=== PATIENT | male | born 1975 | race Caucasian/White ===

== ENCOUNTER 2017-05-08 17:47 | Emergency (ER) | payer MEDICAID ==
[~2017-05-08] VITALS: Ht 175.3 cm; Wt 127.1 kg
[~2017-05-08 17:47] MED LIST: ALBU8.5H5 INH; AMPH20TA2 PO; DIAZ5TAB PO; METH20TA PO; QUET100T4 PO
[2017-05-08] MEDS ORDERED: SODIUM CHLORIDE 0.9% 1,000ML IVBOLUS ONE (18:00)
[2017-05-08] MEDS ORDERED: SODIUM CHLORIDE FLUSH 10ML SYR IVF ONE (18:00)
[2017-05-08] MEDS ORDERED: ASPIRIN 81 MG TABLET CHEW PO ONE (18:00)
[2017-05-08] MEDS ORDERED: ASPIRIN 81 MG TABLET CHEW ONE (18:05)
[2017-05-08] MEDS ORDERED: ALBUTEROL SULFATE 2.5 MG/3 ML ONE (18:20)
[2017-05-08] MEDS ORDERED: ALBUTEROL SULFATE 2.5 MG/3 ML NPPB ONE (18:30)
[2017-05-08 18:31] LABS: BLOOD UREA NITROGEN 9 mg/dL (7-18)
[2017-05-08 18:37] LABS: IS PT STATUS REG ER OR PRE ER? YES
[2017-05-08 20:42] VITALS: BP 121/72
== END 2017-05-08 20:44 | disposition home or self-care (01) ==
LOC: ED 20:43
DX: R07.89 Other chest pain (principal); J45.31 Mild persistent asthma with (acute) exacerbation
CPT/HCPCS: 36415; 71020; 80048; 82040; 84484; 85025; 93005; 94640; 96360; 99285; J7030; J7512; J7613

== ENCOUNTER 2018-01-10 09:22 | Observation (INO) | payer MEDICAID ==
[~2018-01-10] VITALS: Ht 172.7 cm; Wt 117.6 kg
[2018-01-10 10:04] LABS: BASOPHILS # (AUTO) 0.03 x10^3/uL (0-0.1); BASOPHILS % (AUTO) 0 % (0-1); EOSINOPHILS # (AUTO) 0.16 x10^3/uL (0-0.4); EOSINOPHILS % (AUTO) 1 % (1-7); LYMPHOCYTES # (AUTO) 1.32 x10^3/uL (1-3.4); LYMPHOCYTES % (AUTO) 11 % (22-44); MD NO; MEAN CORPUSCULAR HGB CONC 34.6 g/dL (33.2-36.2); MEAN CORPUSCULAR VOLUME 101.2 fL (81-97); MEAN PLATELET VOLUME 8.9 fL (7.4-10.4); MONOCYTES # (AUTO) 0.46 x10^3/uL (0.2-0.8); MONOCYTES % (AUTO) 4 % (2-9); NEUTROPHILS # (AUTO) 10.52 x10^3/uL (1.8-6.8); NEUTROPHILS % (AUTO) 84 % (42-75); PLATELET COUNT 197 x10^3/uL (130-400); RED CELL DISTRIBUTION WIDTH 12.5 % (9.4-14.8)
[2018-01-10 10:20] LABS: ALANINE AMINOTRANSFERASE 29 U/L (12-78); ALBUMIN 3.6 g/dL (3.4-5.0); ANION GAP 7 mmol/L (5-15); CALCIUM 8.7 mg/dL (8.5-10.1); CHLORIDE 104 mmol/L (98-107); CREATININE 0.82 mg/dL (0.7-1.3)
[2018-01-10 10:21] LABS: ALKALINE PHOSPHATASE 121 U/L (45-117); TOTAL PROTEIN 7.8 g/dL (6.4-8.2)
[2018-01-10 10:22] LABS: SALICYLATE LEVEL < 1.7 mg/dL (2.8-20.0)
[2018-01-10 10:23] LABS: ACETAMINOPHEN < 2 mcg/mL (10-30)
[2018-01-10 10:26] LABS: AMPHETAMINE SCREEN, URINE Negative (Negative); BARBITURATE SCREEN, URINE Negative (Negative); BENZODIAZEPINE SCREEN, URINE Positive (Negative); CANNABINOID SCREEN, URINE Negative (Negative); COCAINE SCREEN, URINE Negative (Negative); METHADONE SCREEN, URINE Negative (Negative); OPIATE SCREEN, URINE Negative (Negative)
[2018-01-10] MEDS ORDERED: QUET200T4 PO (11:14)
[2018-01-10] MEDS ORDERED: DIAZ5TAB PO (11:14)
[2018-01-10] MEDS ORDERED: IBUPROFEN 200 MG TABLET PO ONE (11:30)
[2018-01-10] MEDS ORDERED: IBUPROFEN 200 MG TABLET ONE (11:53)
[2018-01-10] MEDS ORDERED: POLYETHYLENE GLYCOL 17 GM PACKET PO PRN (12:00)
[2018-01-10] MEDS ORDERED: ONDANSETRON ODT 4 MG PO PRN ×2 (12:00→16:00)
[2018-01-10] MEDS ORDERED: ALBUTEROL SULFATE 2.5 MG/3 ML NPPB PRN (12:30)
[2018-01-10] MEDS ORDERED: ALBUTEROL SULFATE 2.5 MG/3 ML NPPB SCH ×3 (12:30→21:00)
[2018-01-10 12:34] LABS: FREE T4 (FREE THYROXINE) 0.87 ng/dL (0.76-1.46); THYROID STIMULATING HORMONE 1.89 mIU/L (0.358-3.740)
[2018-01-10] MEDS ORDERED: ALBUTEROL SULFATE 2.5 MG/3 ML ONE (12:52)
[2018-01-10] MEDS ORDERED: ACETAMINOPHEN 325 MG TABLET PO PRN (16:00)
[2018-01-10] MEDS ORDERED: LORazepam 1MG TABLET PO PRN (16:00)
[2018-01-10 18:58] VITALS: BP 123/83
[2018-01-10] MEDS: QUETIAPINE 200 MG TABLET PO SCH (20:04)
[2018-01-10] MEDS: HYDROcodone/APAP 5/325 TABLET PO PRN (20:11)
[2018-01-11 05:56] LABS: BASOPHILS # (AUTO) 0.03 x10^3/uL (0-0.1); BASOPHILS % (AUTO) 0 % (0-1); EOSINOPHILS # (AUTO) 0.18 x10^3/uL (0-0.4); EOSINOPHILS % (AUTO) 2 % (1-7); LYMPHOCYTES # (AUTO) 1.53 x10^3/uL (1-3.4); LYMPHOCYTES % (AUTO) 18 % (22-44); MD NO; MEAN CORPUSCULAR HEMOGLOBIN 34.9 pg (27.5-34.5); MEAN CORPUSCULAR HGB CONC 33.9 g/dL (33.2-36.2); MEAN CORPUSCULAR VOLUME 102.9 fL (81-97); MONOCYTES # (AUTO) 1.07 x10^3/uL (0.2-0.8); MONOCYTES % (AUTO) 13 % (2-9); NEUTROPHILS # (AUTO) 5.52 x10^3/uL (1.8-6.8); NEUTROPHILS % (AUTO) 66 % (42-75); PLATELET COUNT 162 x10^3/uL (130-400); RED BLOOD COUNT 4.21 x10^6/uL (4.38-5.82); RED CELL DISTRIBUTION WIDTH 13.1 % (9.4-14.8)
[2018-01-11 06:06] LABS: ANION GAP 4 mmol/L (5-15); CALCIUM 8.1 mg/dL (8.5-10.1); CHLORIDE 104 mmol/L (98-107)
[2018-01-11 06:11] LABS: ALANINE AMINOTRANSFERASE 25 U/L (12-78); ALKALINE PHOSPHATASE 102 U/L (45-117); BILIRUBIN,TOTAL 0.7 mg/dL (0.2-1.0); CREATININE 0.81 mg/dL (0.7-1.3); TOTAL PROTEIN 6.6 g/dL (6.4-8.2)
[2018-01-11 07:53] VITALS: BP 137/85
[2018-01-11] MEDS: DIAZEPAM 5 MG TABLET PO SCH (09:03)
[2018-01-11] MEDS: SENNA/DOCUSATE TABLET PO SCH (09:03)
[2018-01-11] MEDS: HYDROcodone/APAP 5/325 TABLET PO PRN ×2 (09:15→20:56)
[2018-01-11 17:04] LABS: FOLATE LEVEL > 20.0 ng/mL (3.1-17.5)
[2018-01-11 19:38] VITALS: BP 127/72
[2018-01-11] MEDS: ALBUTEROL SULFATE 2.5 MG/3 ML NPPB SCH (19:55)
[2018-01-11] MEDS: QUETIAPINE 200 MG TABLET PO SCH (20:56)
[2018-01-12 07:30] VITALS: BP 125/75
[2018-01-12] MEDS: HYDROcodone/APAP 5/325 TABLET PO PRN ×3 (08:31→20:44)
[2018-01-12] MEDS: SENNA/DOCUSATE TABLET PO SCH (08:31)
[2018-01-12] MEDS: DIAZEPAM 5 MG TABLET PO SCH (08:31)
[2018-01-12] MEDS: FLUTICASONE/VILANTEROL 200-25MCG/INH INH SCH (08:44)
[2018-01-12] MEDS: ALBUTEROL SULFATE 2.5 MG/3 ML NPPB SCH ×2 (09:00→21:50)
[2018-01-12] MEDS ORDERED: CYANOCOBALAMIN 1,000 MCG/ML, 1ML IM SCH (14:30)
[2018-01-12 20:00] VITALS: BP 109/70
[2018-01-12] MEDS: QUETIAPINE 200 MG TABLET PO SCH (20:36)
[2018-01-13 07:30] VITALS: BP 121/84
[2018-01-13] MEDS: DIAZEPAM 5 MG TABLET PO SCH (09:16)
[2018-01-13] MEDS: SENNA/DOCUSATE TABLET PO SCH (09:16)
[2018-01-13] MEDS: FLUTICASONE/VILANTEROL 200-25MCG/INH INH SCH (09:16)
[2018-01-13] MEDS: HYDROcodone/APAP 5/325 TABLET PO PRN ×2 (09:25→21:58)
[2018-01-13] MEDS: ALBUTEROL SULFATE 2.5 MG/3 ML NPPB SCH ×2 (11:05→20:23)
[2018-01-13 20:09] VITALS: BP 117/63
[2018-01-13] MEDS: QUETIAPINE 200 MG TABLET PO SCH (20:31)
[2018-01-14 05:17] LABS: BASOPHILS # (AUTO) 0.03 x10^3/uL (0-0.1); BASOPHILS % (AUTO) 0 % (0-1); EOSINOPHILS # (AUTO) 0.29 x10^3/uL (0-0.4); EOSINOPHILS % (AUTO) 4 % (1-7); LYMPHOCYTES # (AUTO) 2.73 x10^3/uL (1-3.4); LYMPHOCYTES % (AUTO) 40 % (22-44); MD NO; MEAN CORPUSCULAR HEMOGLOBIN 34.9 pg (27.5-34.5); MEAN CORPUSCULAR VOLUME 102.4 fL (81-97); MEAN PLATELET VOLUME 8.5 fL (7.4-10.4); MONOCYTES # (AUTO) 0.75 x10^3/uL (0.2-0.8); MONOCYTES % (AUTO) 11 % (2-9); NEUTROPHILS # (AUTO) 3.02 x10^3/uL (1.8-6.8); NEUTROPHILS % (AUTO) 44 % (42-75); PLATELET COUNT 187 x10^3/uL (130-400); RED BLOOD COUNT 4.06 x10^6/uL (4.38-5.82); RED CELL DISTRIBUTION WIDTH 12.4 % (9.4-14.8)
[2018-01-14 05:29] LABS: ALBUMIN 2.8 g/dL (3.4-5.0); ANION GAP 3 mmol/L (5-15); CALCIUM 7.8 mg/dL (8.5-10.1); CHLORIDE 105 mmol/L (98-107); CREATININE 0.65 mg/dL (0.7-1.3)
[2018-01-14 08:26] VITALS: BP 114/66
[2018-01-14] MEDS: ALBUTEROL SULFATE 2.5 MG/3 ML NPPB SCH ×2 (08:29→22:00)
[2018-01-14] MEDS: FLUTICASONE/VILANTEROL 200-25MCG/INH INH SCH (08:57)
[2018-01-14] MEDS: DIAZEPAM 5 MG TABLET PO SCH (08:57)
[2018-01-14] MEDS: SENNA/DOCUSATE TABLET PO SCH (08:57)
[2018-01-14 19:40] VITALS: BP 100/61
[2018-01-14] MEDS: QUETIAPINE 200 MG TABLET PO SCH (20:14)
[2018-01-14] MEDS: HYDROcodone/APAP 5/325 TABLET PO PRN (21:27)
[2018-01-15 07:39] VITALS: BP 104/62
[2018-01-15] MEDS: DIAZEPAM 5 MG TABLET PO SCH (08:09)
[2018-01-15] MEDS: SENNA/DOCUSATE TABLET PO SCH (08:10)
[2018-01-15] MEDS: ALBUTEROL SULFATE 2.5 MG/3 ML NPPB SCH ×2 (09:15→21:00)
[2018-01-15] MEDS: CYANOCOBALAMIN 1,000 MCG TABLET PO SCH (09:40)
[2018-01-15] MEDS: FLUTICASONE/VILANTEROL 200-25MCG/INH INH SCH (09:40)
[2018-01-15 19:52] VITALS: BP 127/84
[2018-01-15] MEDS: QUETIAPINE 200 MG TABLET PO SCH (20:26)
[2018-01-16] MEDS: DIAZEPAM 5 MG TABLET PO SCH (08:07)
[2018-01-16] MEDS: SENNA/DOCUSATE TABLET PO SCH (08:07)
[2018-01-16] MEDS: CYANOCOBALAMIN 1,000 MCG TABLET PO SCH (08:08)
[2018-01-16] MEDS: FLUTICASONE/VILANTEROL 200-25MCG/INH INH SCH (08:09)
[2018-01-16] MEDS: HYDROcodone/APAP 5/325 TABLET PO PRN ×2 (08:35→21:24)
[2018-01-16] MEDS: ALBUTEROL SULFATE 2.5 MG/3 ML NPPB SCH ×2 (08:48→21:00)
[2018-01-16 08:54] VITALS: BP 129/82
[2018-01-16 19:42] VITALS: BP 95/58
[2018-01-16] MEDS: QUETIAPINE 200 MG TABLET PO SCH (21:24)
[2018-01-17] MEDS: DIAZEPAM 5 MG TABLET PO SCH (08:34)
[2018-01-17] MEDS: CYANOCOBALAMIN 1,000 MCG TABLET PO SCH (08:35)
[2018-01-17] MEDS: FLUTICASONE/VILANTEROL 200-25MCG/INH INH SCH (08:35)
[2018-01-17] MEDS: SENNA/DOCUSATE TABLET PO SCH (08:37)
[2018-01-17] MEDS: HYDROcodone/APAP 5/325 TABLET PO PRN ×2 (08:41→21:28)
[2018-01-17] MEDS: ALBUTEROL SULFATE 2.5 MG/3 ML NPPB SCH ×2 (09:00→21:00)
[2018-01-17 09:21] VITALS: BP 127/83
[2018-01-17 19:08] VITALS: BP 121/74
[2018-01-17] MEDS: QUETIAPINE 200 MG TABLET PO SCH (21:28)
[2018-01-18] MEDS ORDERED: ACETAMINOPHEN 325 MG SUPP PR PRN (07:00)
[2018-01-18] MEDS ORDERED: ACETAMINOPHEN 650 MG SUPP PR PRN (07:30)
[2018-01-18 07:40] VITALS: BP 108/66
[2018-01-18] MEDS: DIAZEPAM 5 MG TABLET PO SCH (08:28)
[2018-01-18] MEDS: CYANOCOBALAMIN 1,000 MCG TABLET PO SCH (08:28)
[2018-01-18] MEDS: FLUTICASONE/VILANTEROL 200-25MCG/INH INH SCH (08:29)
[2018-01-18] MEDS: SENNA/DOCUSATE TABLET PO SCH (08:43)
[2018-01-18] MEDS: ALBUTEROL SULFATE 2.5 MG/3 ML NPPB SCH ×2 (09:00→20:50)
[2018-01-18] MEDS: ACETAMINOPHEN 325 MG TABLET PO PRN ×2 (09:15→20:36)
[2018-01-18 19:40] VITALS: BP 125/71
[2018-01-18] MEDS: QUETIAPINE 200 MG TABLET PO SCH (20:27)
[2018-01-19 08:30] VITALS: BP 101/64
[2018-01-19] MEDS: FLUTICASONE/VILANTEROL 200-25MCG/INH INH SCH (09:00)
[2018-01-19] MEDS: ALBUTEROL SULFATE 2.5 MG/3 ML NPPB SCH ×2 (09:00→21:00)
[2018-01-19] MEDS: DIAZEPAM 5 MG TABLET PO SCH (10:11)
[2018-01-19] MEDS: SENNA/DOCUSATE TABLET PO SCH (10:11)
[2018-01-19] MEDS: CYANOCOBALAMIN 1,000 MCG TABLET PO SCH (10:12)
[2018-01-19] MEDS: QUETIAPINE 200 MG TABLET PO SCH (20:09)
[2018-01-19 20:10] VITALS: BP 113/71
[2018-01-19] MEDS: ACETAMINOPHEN 325 MG TABLET PO PRN (20:14)
[2018-01-20 08:07] VITALS: BP 129/72
[2018-01-20] MEDS ORDERED: THIAMINE 100MG TABLET ONE (08:55)
[2018-01-20] MEDS: SENNA/DOCUSATE TABLET PO SCH (08:57)
[2018-01-20] MEDS: ALBUTEROL SULFATE 2.5 MG/3 ML NPPB SCH ×2 (08:58→20:20)
[2018-01-20] MEDS: CYANOCOBALAMIN 1,000 MCG TABLET PO SCH (08:58)
[2018-01-20] MEDS: DIAZEPAM 5 MG TABLET PO SCH (08:58)
[2018-01-20] MEDS: FLUTICASONE/VILANTEROL 200-25MCG/INH INH SCH (09:00)
[2018-01-20] MEDS: ACETAMINOPHEN 325 MG TABLET PO PRN ×2 (09:06→21:15)
[2018-01-20 20:49] VITALS: BP 122/72
[2018-01-20] MEDS: QUETIAPINE 200 MG TABLET PO SCH (21:14)
[2018-01-21 08:01] VITALS: BP 114/72
[2018-01-21] MEDS: SENNA/DOCUSATE TABLET PO SCH (08:27)
[2018-01-21] MEDS: FLUTICASONE/VILANTEROL 200-25MCG/INH INH SCH (08:27)
[2018-01-21] MEDS: CYANOCOBALAMIN 1,000 MCG TABLET PO SCH (08:27)
[2018-01-21] MEDS: DIAZEPAM 5 MG TABLET PO SCH (08:27)
[2018-01-21] MEDS: ALBUTEROL SULFATE 2.5 MG/3 ML NPPB SCH ×2 (09:00→21:00)
[2018-01-21 20:22] VITALS: BP 132/78
[2018-01-21] MEDS: ACETAMINOPHEN 325 MG TABLET PO PRN (20:27)
[2018-01-21] MEDS: QUETIAPINE 200 MG TABLET PO SCH (20:27)
[2018-01-22 07:45] VITALS: BP 105/62
[2018-01-22] MEDS: DIAZEPAM 5 MG TABLET PO SCH (08:12)
[2018-01-22] MEDS: CYANOCOBALAMIN 1,000 MCG TABLET PO SCH (08:13)
[2018-01-22] MEDS: ACETAMINOPHEN 325 MG TABLET PO PRN ×2 (08:17→20:16)
[2018-01-22] MEDS: SENNA/DOCUSATE TABLET PO SCH (09:00)
[2018-01-22] MEDS: FLUTICASONE/VILANTEROL 200-25MCG/INH INH SCH (09:59)
[2018-01-22] MEDS ORDERED: ALBUTEROL SULFATE 2.5 MG/3 ML NPPB PRN (11:00)
[2018-01-22 19:36] VITALS: BP 120/76
[2018-01-22] MEDS: QUETIAPINE 200 MG TABLET PO SCH (20:16)
[2018-01-23] MEDS: FLUTICASONE/VILANTEROL 200-25MCG/INH INH SCH (08:12)
[2018-01-23] MEDS: DIAZEPAM 5 MG TABLET PO SCH (08:12)
[2018-01-23] MEDS: CYANOCOBALAMIN 1,000 MCG TABLET PO SCH (08:12)
[2018-01-23] MEDS: SENNA/DOCUSATE TABLET PO SCH (08:12)
[2018-01-23 08:13] VITALS: BP 115/72
[2018-01-23 19:37] VITALS: BP 131/81
[2018-01-23] MEDS: QUETIAPINE 200 MG TABLET PO SCH (19:57)
[2018-01-23] MEDS: ACETAMINOPHEN 325 MG TABLET PO PRN (20:03)
[2018-01-24 08:04] VITALS: BP 97/62
[2018-01-24] MEDS: FLUTICASONE/VILANTEROL 200-25MCG/INH INH SCH (09:08)
[2018-01-24] MEDS: DIAZEPAM 5 MG TABLET PO SCH (09:08)
[2018-01-24] MEDS: SENNA/DOCUSATE TABLET PO SCH (09:08)
[2018-01-24] MEDS: CYANOCOBALAMIN 1,000 MCG TABLET PO SCH (09:08)
[2018-01-24] MEDS: ACETAMINOPHEN 325 MG TABLET PO PRN (09:08)
[2018-01-24] MEDS ORDERED: CYAN10005 PO (16:19)
== END 2018-01-24 17:09 | disposition home or self-care (01) ==
LOC: ED 10:26 → EDIP 10:40 → 2N 17:53
PROVIDERS: ADMIT Internal Medicine; ATTEND Internal Medicine
DX: R45.851 Suicidal ideations (principal); F32.9 Major depressive disorder, single episode, unspecified; D75.89 Other specified diseases of blood and blood-forming organs; F41.1 Generalized anxiety disorder; F25.9 Schizoaffective disorder, unspecified; J45.909 Unspecified asthma, uncomplicated; F10.10 Alcohol abuse, uncomplicated; E43 Unspecified severe protein-calorie malnutrition; E53.8 Deficiency of other specified B group vitamins; G89.29 Other chronic pain; F17.210 Nicotine dependence, cigarettes, uncomplicated; Z59.0 Homelessness
CPT/HCPCS: 36415; 71045; 80048; 80053; 80307; 80329; 82040; 82607; 82746; 84439; 84443; 85025; 93005; 94640; 99285; G0378; J3420; J7613; G0480

== ENCOUNTER 2018-03-15 13:56 | Emergency (ER) | payer MEDICAID ==
[~2018-03-15] VITALS: Ht 175.3 cm; Wt 118.1 kg
[~2018-03-15 13:56] MED LIST changes: +CYAN10005 PO; +QUET200T4 PO
[2018-03-15 16:35] LABS: BASOPHILS # (AUTO) 0.06 x10^3/uL (0-0.1); BASOPHILS % (AUTO) 1 % (0-1); EOSINOPHILS # (AUTO) 0.34 x10^3/uL (0-0.4); EOSINOPHILS % (AUTO) 6 % (1-7); LYMPHOCYTES # (AUTO) 2.69 x10^3/uL (1-3.4); LYMPHOCYTES % (AUTO) 44 % (22-44); MD NO; MEAN CORPUSCULAR HEMOGLOBIN 34.2 pg (27.5-34.5); MEAN CORPUSCULAR HGB CONC 33.8 g/dL (33.2-36.2); MEAN PLATELET VOLUME 8.8 fL (7.4-10.4); MONOCYTES # (AUTO) 0.56 x10^3/uL (0.2-0.8); MONOCYTES % (AUTO) 9 % (2-9); NEUTROPHILS # (AUTO) 2.49 x10^3/uL (1.8-6.8); NEUTROPHILS % (AUTO) 41 % (42-75); PLATELET COUNT 167 x10^3/uL (130-400); RED BLOOD COUNT 4.14 x10^6/uL (4.38-5.82); RED CELL DISTRIBUTION WIDTH 12.9 % (9.4-14.8)
[2018-03-15 16:44] LABS: ALBUMIN 3.1 g/dL (3.4-5.0); ANION GAP 5 mmol/L (5-15); CALCIUM 8.1 mg/dL (8.5-10.1); CHLORIDE 111 mmol/L (98-107)
[2018-03-15 17:00] LABS: AMPHETAMINE SCREEN, URINE Negative (Negative); BARBITURATE SCREEN, URINE Negative (Negative); BENZODIAZEPINE SCREEN, URINE Negative (Negative); CANNABINOID SCREEN, URINE Negative (Negative); COCAINE SCREEN, URINE Negative (Negative); METHADONE SCREEN, URINE Negative (Negative); OPIATE SCREEN, URINE Negative (Negative)
[2018-03-15 17:01] LABS: ACETAMINOPHEN < 2 mcg/mL (10-30); SALICYLATE LEVEL < 1.7 mg/dL (2.8-20.0)
[2018-03-15] MEDS ORDERED: QUETIAPINE 100MG TABLET PO ONE (18:30)
[2018-03-15] MEDS ORDERED: QUETIAPINE 100MG TABLET ONE (19:19)
[2018-03-15 20:22] VITALS: BP 144/81
== END 2018-03-15 20:25 | disposition home or self-care (01) ==
LOC: ED 14:55
DX: R45.851 Suicidal ideations (principal); F25.9 Schizoaffective disorder, unspecified; J45.909 Unspecified asthma, uncomplicated; Z79.899 Other long term (current) drug therapy
CPT/HCPCS: 36415; 80048; 80307; 80329; 82040; 85025; 99284; G0480

== ENCOUNTER 2019-06-09 14:01 | Inpatient (IN) | payer MEDICAID ==
[~2019-06-09] VITALS: Ht 175.3 cm; Wt 114.6 kg
[2019-06-23 07:30] VITALS: BP 105/60
== END 2019-06-23 10:30 | disposition home or self-care (01) | DRG 750 ==
LOC: 3E 16:23
PROVIDERS: ADMIT Psychiatry & Neurology Psychosomatic Medicine; ATTEND Psychiatry & Neurology Psychosomatic Medicine
DX: F25.0 Schizoaffective disorder, bipolar type (principal); R45.851 Suicidal ideations; D75.89 Other specified diseases of blood and blood-forming organs; F41.9 Anxiety disorder, unspecified; J45.909 Unspecified asthma, uncomplicated; F17.200 Nicotine dependence, unspecified, uncomplicated; F90.9 Attention-deficit hyperactivity disorder, unspecified type; Z88.1 Allergy status to other antibiotic agents; Z88.0 Allergy status to penicillin; Z88.8 Allergy status to other drugs, medicaments and biological substances
CPT/HCPCS: 36415; 80053; 80061; 81003; 82140; 82607; 82962; 84439; 84443; 85025; 86592; 94640; J7613

== ENCOUNTER 2019-10-29 19:26 | Emergency (ER) | payer MEDICAID ==
[~2019-10-29] VITALS: Ht 180.3 cm; Wt 129.0 kg
[~2019-10-29 19:26] MED LIST changes: +CYAN-27 PO; -CYAN10005 PO; +NICO-486 TD; +QUET100T PO
--- NOTE | 2019-10-29 19:32 | NUR ---
REPORT OF PT FROM [facility] UPON ARRIVAL TO [facility] ED. PT REPORTS AUDITORY HALLUCINATIONS WITH SUICIDAL IDEATION. LIGHTING TECHNICIAN GLENYS NOTIFIED OF NEED FOR SECURE ROOM AND SITTER. PER LIGHTING TECHNICIAN, NO SECURE ROOM AVAILABLE FOR PT AT THIS TIME. PER TAVO VERONICA REQUESTED. PT EDUCATED ON ER PROCESS AND POC AND VERBALIZES UNDERSTANDING. PT LAYING IN GURNEY AT THIS TIME. PT CALM AND COOPERATIVE. AWAITING ERP FOR ASSESSMENT OF PT.
--- NOTE | 2019-10-29 19:58 | NUR ---
SITTER OUTSIDE OF PT ROOM FOR DIRECT OBSERVATION OF PT. PT ASKED TO REMOVE ALL PERSONAL BELONGINGS AND ARTICLES AND PLACE IN PT BELONGING BAGS. PT BELONGINGS PLACED IN 2 OF 2 BAGS AND LABELED FOR STORAGE IN LOCKED BIN.
--- NOTE | 2019-10-29 21:16 | NUR ---
PT CALM AND COOPERATIVE IN [facility] AT THIS TIME. PT HAS SITTER OUTSIDE OF ROOM FOR DIRECT OBSERVATION OF PT AT THIS TIME.
[2019-10-29 21:33] LABS: BASOPHILS # (AUTO) 0.04 x10^3/uL (0-0.1); BASOPHILS % (AUTO) 0 % (0-1); EOSINOPHILS # (AUTO) 0.71 x10^3/uL (0-0.4); EOSINOPHILS % (AUTO) 7 % (1-7); LYMPHOCYTES # (AUTO) 3.89 x10^3/uL (1-3.4); LYMPHOCYTES % (AUTO) 39 % (22-44); MD NO; MEAN CORPUSCULAR HGB CONC 33.2 g/dL (33.2-36.2); MEAN CORPUSCULAR VOLUME 102.4 fL (81-97); MEAN PLATELET VOLUME 8.1 fL (7.4-10.4); MONOCYTES # (AUTO) 0.95 x10^3/uL (0.2-0.8); MONOCYTES % (AUTO) 10 % (2-9); NEUTROPHILS # (AUTO) 4.34 x10^3/uL (1.8-6.8); NEUTROPHILS % (AUTO) 44 % (42-75); PLATELET COUNT 184 x10^3/uL (130-400); RED BLOOD COUNT 3.99 x10^6/uL (4.38-5.82); RED CELL DISTRIBUTION WIDTH 13.2 % (9.4-14.8)
[2019-10-29 21:43] LABS: ALANINE AMINOTRANSFERASE 41 U/L (12-78); ALBUMIN 3.3 g/dL (3.4-5.0); ANION GAP 3 mmol/L (5-15); CALCIUM 8.4 mg/dL (8.5-10.1); CHLORIDE 112 mmol/L (98-107); CREATININE 0.88 mg/dL (0.7-1.3); SALICYLATE LEVEL < 1.7 mg/dL (2.8-20.0)
[2019-10-29 21:45] LABS: ALKALINE PHOSPHATASE 121 U/L (45-117); BILIRUBIN,TOTAL 0.3 mg/dL (0.2-1.0); TOTAL PROTEIN 6.6 g/dL (6.4-8.2)
--- NOTE | 2019-10-29 22:57 | NUR ---
PT RESTING ON GUJOSE, STATED THAT " I HEAR VOICES THAT TELL ME TO HARM MYSELF", DENIES PLAN. URINE SAMPLE SENT, ROOM SECURED, SITTER AT DOORWAY FOR CONTINOUS MONTITORING
--- NOTE | 2019-10-29 23:07 | NUR ---
PROVIDED PT WITH SNACK, SI PRECAUTIONS MAINTAINED
[2019-10-29 23:18] LABS: AMPHETAMINE SCREEN, URINE Negative (Negative); BARBITURATE SCREEN, URINE Negative (Negative); BENZODIAZEPINE SCREEN, URINE Negative (Negative); CANNABINOID SCREEN, URINE Negative (Negative); COCAINE SCREEN, URINE Negative (Negative); METHADONE SCREEN, URINE Negative (Negative); OPIATE SCREEN, URINE Negative (Negative)
--- NOTE | 2019-10-29 23:33 | NUR ---
SOC ON TELEPHONE, UPDATED MD ON PT STATUS, H/X, LABS AND VS, SOC TO TELE PSYCH CONSULT WITH PT
--- NOTE | 2019-10-29 23:38 | NUR ---
TELE PSYCH CONSULT IN PROGRESS
--- NOTE | 2019-10-30 00:13 | NUR ---
PT RESTING CALMLY, DENIES NEEDS AT THSI TIME, NAD, SITTER AT DOORWAY FOR CONTINOUS MONITORING
--- NOTE | 2019-10-30 00:24 | NUR ---
SPOKE WITH [facility] HARNESS CLEANER DAISY WHO ASKS FOR PATIENTS CHART TO BE FAXED TO THEM AND THEY WILL REVIEW IT.
--- NOTE | 2019-10-30 01:19 | NUR ---
3E HAS RECEIVED THE FAX AND HAVE TEXTED DR Green. THEY ARE WAITING TO HEAR BACK FROM HIM ABOUT ACCEPTANCE OR DENIAL.
--- NOTE | 2019-10-30 01:42 | NUR ---
PROVIDED PT WITH SANDWICH AND DRINK, DENIES OTHER NEEDS, SITTER AT DOORWAY FOR CONTINOUS MONITORING
--- NOTE | 2019-10-30 01:56 | NUR ---
PER DAISY ON 3E DR Green HAS DECLINED THE PATIENT WELL INSURANCE WILL NOT PAY.
--- NOTE | 2019-10-30 01:58 | NUR ---
TP: PT WITH MEDICAID TRADITIONAL. REFERRAL PACKET FAXED TO [facility], [facility], AND [facility].
--- NOTE | 2019-10-30 02:37 | NUR ---
[facility] staff on telephone updated on pt's labs, staff to discuss with
--- NOTE | 2019-10-30 03:09 | NUR ---
PT RESTING WITH EYES COSED, SNORING, EQUAL CHEST RISE/FALL OBSERVED, SITTER AT DOORWAY FOR CONTINOUS MONITORING
--- NOTE | 2019-10-30 04:27 | NUR ---
PT RESTING WITH EYES COSED, NAD, EQUAL CHEST RISE/FALL OBSERVED, SITTER AT DOORWAY FOR CONTINOUS MONITORING
--- NOTE | 2019-10-30 05:05 | NUR ---
PT RESTING CALMLY, PROVIDED PT WITH JUICE PER HIS REQUEST, DENIES FURTHER NEEDS, SITTER AT DOORWAY FOR CONTINOUS MONITORING
--- NOTE | 2019-10-30 06:04 | NUR ---
PT RESTING WITH EYES CLOSED, SNORING, EQUAL CHEST RISE/FALL OBSERVED, SITTER AT DOORWAY FOR CONTINOUS MONITORING
--- NOTE | 2019-10-30 06:57 | NUR ---
REPORT GIVEN TO LARRY VALENTINE
--- NOTE | 2019-10-30 07:01 | NUR ---
REPORT RECEIVED FROM RL JUAREZ.
--- NOTE | 2019-10-30 08:20 | NUR ---
MEAL TRAY PROVIDED AT THIS TIME.
[2019-10-30] MEDS ORDERED: QUETIAPINE 100MG TABLET ONE ×2 (08:25→21:04)
--- NOTE | 2019-10-30 08:28 | NUR ---
PT MEDICATED PER EMAR. PT TOLERATED WELL.
[2019-10-30] MEDS ORDERED: QUETIAPINE 100MG TABLET PO SCH (09:00)
--- NOTE | 2019-10-30 09:43 | NUR ---
PT RESTING IN BED. PT'S AOX4. RESPS EVEN AND UNLABORED. SITTER MONITORING FROM HALLWAY FOR SAFETY. ROOM REMAINS SECURE.
--- NOTE | 2019-10-30 10:55 | NUR ---
PT SLEEPING IN BED. RESPS EVEN AND UNLABORED. SITTER MONITORING FROM HALLWAY FOR SAFETY. ROOM REMAINS SECURE.
--- NOTE | 2019-10-30 11:31 | NUR ---
MEAL TRAY ORDERED AT THIS TIME.
--- NOTE | 2019-10-30 12:17 | NUR ---
PT RECEIVED MEAL TRAY AND APPLE JUICE X2 PER REQUEST. VY.
--- NOTE | 2019-10-30 13:37 | NUR ---
PT SLEEPING IN BED. RESPS EVEN AND UNLABORED. SITTER MONITORING FROM HALLWAY FOR SAFETY. ROOM REMAINS SECURE.
[2019-10-30] MEDS ORDERED: QUETIAPINE 25MG TABLET PO PRN (14:00)
--- NOTE | 2019-10-30 15:09 | NUR ---
SNACKS AND JUICE PROVIDED AT THIS TIME.
--- NOTE | 2019-10-30 16:25 | NUR ---
pt sleeping in bed. resps even and unlabored. sitter monitoring from hallway for safety. room remains secure.
--- NOTE | 2019-10-30 17:11 | NUR ---
meal tray ordered at this time.
--- NOTE | 2019-10-30 17:30 | NUR ---
meal tray provided at this time.
--- NOTE | 2019-10-30 18:26 | NUR ---
pt amb to br with steady gait. pt's aox4. resps even and unlabored. sitter monitoring from hallway for safety. room remains secure.
--- NOTE | 2019-10-30 19:00 | NUR ---
Bedside report from Brielle RN, pt care assumed at this time. Pt asleep in hospital bed in suicide secured room, pt belongings secured by previous shift, sitter is at doorway. awaiting psych placement. JEANIE.
--- NOTE | 2019-10-30 19:40 | NUR ---
Note fara in EDM - 10/30/19 at 2237 by NICK Bedside report from Brielle JUAREZ, pt care assumed at this time. Pt asleep in hospital bed in suicide secured room, pt belongings secured by previous shift, sitter is at doorway. awaiting psych placement. JEANIE.
--- NOTE | 2019-10-30 20:00 | NUR ---
Pt resting in hospital bed in suicide secured room, pt belongings secured by previous shift, sitter is at doorway. Pt given apple juice & ama crackers. WCTM.
[2019-10-30] MEDS: QUETIAPINE 100MG TABLET PO SCH ×2 (20:51→21:08)
--- NOTE | 2019-10-30 21:00 | NUR ---
Pt resting in hospital bed in suicide secured room, pt belongings secured by previous shift, sitter is at doorway. Pt given milk & ama crackers, boundaries established that it is time to go to sleep after this snack, pt agreeable. WCTM.
--- NOTE | 2019-10-30 22:00 | NUR ---
Pt asleep in hospital bed in suicide secured room, pt belongings secured by previous shift, sitter is at doorway. WCTM.
--- NOTE | 2019-10-30 23:15 | NUR ---
BEDSIDE REPORT RECEIVED FROM LARRY VERONICA. PLAN OF CARE DISCUSSED.
--- NOTE | 2019-10-31 00:23 | NUR ---
PATIENT SLEEPING, RESPIRATIONS EVEN AND UNLABORED. SITTER AT DOOR.
--- NOTE | 2019-10-31 01:15 | NUR ---
PATIENT SLEEPING, RESPIRATIONS EVEN AND UNLABORED. SITTER AT DOOR.
--- NOTE | 2019-10-31 03:54 | NUR ---
PT SLEEPING. NAD. SITTER IN PLACE.
--- NOTE | 2019-10-31 05:15 | NUR ---
BREAKFAST TRAY ORDERED. PT RESTING QUIETLY. SITTER IN PLACE.
--- NOTE | 2019-10-31 05:59 | NUR ---
PT SLEEPING. SITTER IN PLACE.
--- NOTE | 2019-10-31 07:21 | NUR ---
REPORT RECIEVED FROM MAHESH JUAREZ.
--- NOTE | 2019-10-31 09:44 | NUR ---
Grady from [facility] called for an update on patient. He said there is no beds available at this time and they might have a bed available Sunday.
[2019-10-31] MEDS ORDERED: QUETIAPINE 25MG TABLET ONE (11:22)
[2019-10-31] MEDS ORDERED: QUETIAPINE 25MG TABLET PO PRN (12:00)
--- NOTE | 2019-10-31 13:35 | NUR ---
BREAK RN: PT CURRENTLY DOZING ON BED. NAD NOTED. SKIN PWD. RESP EVEN AND UNLABORED. PT DENIES NEEDS AT THIS TIME. GARAGE DOORS DOWN IN ROOM. BELONGINGS IN LOCKED LOCKER.
--- NOTE | 2019-10-31 17:07 | NUR ---
MEAL TRAY PROVIDED
--- NOTE | 2019-10-31 18:42 | NUR ---
REPORT TO MAHESH JUAREZ
--- NOTE | 2019-10-31 20:38 | NUR ---
PT QUEITLY TALKING TO THE TV. NAD. SITTER IN PLACE.
[2019-10-31] MEDS ORDERED: QUETIAPINE 100MG TABLET ONE (20:40)
[2019-10-31] MEDS: QUETIAPINE 100MG TABLET PO SCH (20:45)
--- NOTE | 2019-10-31 21:02 | NUR ---
GIVEN 5 PAKCETS OF SERGIO CRACKERS AND 1 MILK PER HIS SPECIFIC REQUEST. PT DENIES FURTHER NEEDS AT THIS TIME. SITTER IN PLACE.
--- NOTE | 2019-10-31 22:54 | NUR ---
PT SLEEPING. NAD. SITTER IN PLACE.
--- NOTE | 2019-11-01 00:08 | NUR ---
PT SLEEPING. NAD. SITTER IN PLACE.
--- NOTE | 2019-11-01 02:14 | NUR ---
PT SLEEPING. NAD. SITTER IN PLACE.
--- NOTE | 2019-11-01 03:47 | NUR ---
PT SLEEPING. NAD. SITTER IN PLACE.
--- NOTE | 2019-11-01 04:34 | NUR ---
PT SLEEPING. NAD. SITTER IN PLACE.
--- NOTE | 2019-11-01 04:44 | NUR ---
MEAL TRAY ORDERED
--- NOTE | 2019-11-01 05:30 | NUR ---
PT SLEEPING. NAD. SITTER IN PLACE.
--- NOTE | 2019-11-01 06:41 | NUR ---
PT SLEEPING. NAD. SITTER IN PLACE
--- NOTE | 2019-11-01 07:00 | NUR ---
REPORT RECIEVED FROM MAHESH JUAREZ
--- NOTE | 2019-11-01 08:21 | NUR ---
MEAL TRAY PROVIDED, PATIENT RESTING IN BED. SO COMPLAINTS AT THIS TIME, SAFETY PRECAUTIONS IN PLACE
--- NOTE | 2019-11-01 08:58 | NUR ---
REPORT FROM PEYTON. PT SLEEPING. SITTER PRESENT. NO NEEDS AT THIS TIME
--- NOTE | 2019-11-01 10:00 | NUR ---
PT SLEEPING, SITTER PRESENT. NO NEEDS AT THIS TIME
--- NOTE | 2019-11-01 11:14 | NUR ---
MEAL TRAY WILL BE ORDERED. PT AWARE. SITTER PRESENT. NO NEEDS AT THIS TIME
--- NOTE | 2019-11-01 12:01 | NUR ---
MEAL TRAY ORDERED. PT AMBULATED TO BATHROOM.
--- NOTE | 2019-11-01 12:36 | NUR ---
GIVEN MEAL TRAY.
--- NOTE | 2019-11-01 13:30 | NUR ---
PT SLEEPING. SITTER PRESENT. NO NEEDS AT THIS TIME
--- NOTE | 2019-11-01 14:30 | NUR ---
PT GIVEN SODA AND CRACKERS. NO NEEDS AT THIS TIME.
[2019-11-01] MEDS ORDERED: QUETIAPINE 25MG TABLET ONE (15:28)
[2019-11-01] MEDS: QUETIAPINE 25MG TABLET PO SCH (15:29)
--- NOTE | 2019-11-01 15:30 | NUR ---
MEDICATED PER ORDERS. NO ISSUE W MEDS.
--- NOTE | 2019-11-01 16:28 | NUR ---
PT SHOWERED, SUPPLIED SOAP AND TOWELS. NEW LINENS ON BED. SITTER PRESENT.
--- NOTE | 2019-11-01 18:42 | NUR ---
MEAL TRAY GIVEN. SITTER PRESENT.
--- NOTE | 2019-11-01 18:54 | NUR ---
REPORT FROM LARRY FIGUEROA
[2019-11-01] MEDS ORDERED: QUETIAPINE 100MG TABLET ONE (19:53)
[2019-11-01] MEDS: QUETIAPINE 100MG TABLET PO SCH (21:00)
--- NOTE | 2019-11-01 21:43 | NUR ---
pt medicated per emar. pt resting on hospital bed, sitter at bedside
--- NOTE | 2019-11-02 00:39 | NUR ---
pt resting on hospital bed with eyes closed. respirations even and unlabored. sitter at doorway for frequent checks.
--- NOTE | 2019-11-02 05:00 | NUR ---
pt resting on hospital bed with eyes closed. respirations even and unlabored. sitter at doorway for frequent checks.
--- NOTE | 2019-11-02 06:18 | NUR ---
pt resting on hospital bed with eyes closed. respirations even and unlabored. sitter at doorway for frequent checks.
--- NOTE | 2019-11-02 06:45 | NUR ---
ASSUMED CARE. PT IN DIRECT VIEW OF SITTER. EQUIPMENT AND SUPPLIES SECURED BEHIND PULL DOWN DOORS.
[2019-11-02] MEDS ORDERED: QUETIAPINE 25MG TABLET ONE ×2 (07:07→12:38)
[2019-11-02 07:28] VITALS: BP 121/66
[2019-11-02] MEDS: QUETIAPINE 25MG TABLET PO SCH ×3 (07:30→12:40)
--- NOTE | 2019-11-02 07:43 | NUR ---
MED GIVEN PER JAN. PT STATES HE HEARS VOICES SOMETIMES BUT NOT BAD THIS MORNING. COOPERATIVE, POLITE AND QUIET. GIVEN BREAKFAST
--- NOTE | 2019-11-02 14:03 | NUR ---
AFTER HOLD RELEASED BY WEED ERADICATOR, PT GIVEN DISCHARGE INSTRUCTIONS
== END 2019-11-02 14:06 | disposition home or self-care (01) ==
LOC: ED 20:18
DX: F20.3 Undifferentiated schizophrenia (principal); R45.851 Suicidal ideations; F17.200 Nicotine dependence, unspecified, uncomplicated; J45.909 Unspecified asthma, uncomplicated; F32.9 Major depressive disorder, single episode, unspecified; F41.1 Generalized anxiety disorder; Z72.89 Other problems related to lifestyle
CPT/HCPCS: 36415; 80053; 80307; 85025; 99284

== ENCOUNTER 2019-12-15 20:58 | Emergency (ER) | payer MEDICAID ==
[~2019-12-15] VITALS: Ht 175.3 cm; Wt 134.2 kg
--- NOTE | 2019-12-15 21:20 | NUR ---
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 PT DENIES OTHER C/O AT THIS TIME. PT DENIES SUICIDE ATTEMPT NOW OR IN THE PAST. PT PLACED IN HOSPITAL GOWN, BELONGINGS REMOVED IN 2 BAGS, SECURED IN LOCKER. ROOM SECURED. LAB IN ROOM AT THIS TIME.
[2019-12-15 21:22] LABS: MICROSCOPIC NOT IND
--- NOTE | 2019-12-15 21:23 | NUR ---
PT COOPERATIVE, ANSWERES QUESTIONS APPROPRIATELY, MAKES EYE CONTACT. NOT CURRENTLY RESPONDING TO INTERNAL STIMULI.
[2019-12-15 21:30] LABS: BASOPHILS # (AUTO) 0.04 x10^3/uL (0-0.1); BASOPHILS % (AUTO) 1 % (0-1); EOSINOPHILS # (AUTO) 0.24 x10^3/uL (0-0.4); EOSINOPHILS % (AUTO) 3 % (1-7); LYMPHOCYTES # (AUTO) 2.73 x10^3/uL (1-3.4); LYMPHOCYTES % (AUTO) 35 % (22-44); MD NO; MEAN CORPUSCULAR HEMOGLOBIN 34.4 pg (27.5-34.5); MEAN CORPUSCULAR HGB CONC 33.7 g/dL (33.2-36.2); MEAN CORPUSCULAR VOLUME 102.2 fL (81-97); MEAN PLATELET VOLUME 8.6 fL (7.4-10.4); MONOCYTES # (AUTO) 0.77 x10^3/uL (0.2-0.8); MONOCYTES % (AUTO) 10 % (2-9); NEUTROPHILS % (AUTO) 52 % (42-75); PLATELET COUNT 212 x10^3/uL (130-400); RED BLOOD COUNT 4.34 x10^6/uL (4.38-5.82); RED CELL DISTRIBUTION WIDTH 13.4 % (9.4-14.8)
[2019-12-15 21:30] LABS: CULTURE INDICATED? NO
[2019-12-15 21:33] LABS: AMPHETAMINE SCREEN, URINE Negative (Negative); BARBITURATE SCREEN, URINE Negative (Negative); BENZODIAZEPINE SCREEN, URINE Negative (Negative); CANNABINOID SCREEN, URINE Negative (Negative); COCAINE SCREEN, URINE Negative (Negative); METHADONE SCREEN, URINE Negative (Negative); OPIATE SCREEN, URINE Negative (Negative)
[2019-12-15 21:41] LABS: ALBUMIN 3.6 g/dL (3.4-5.0); ANION GAP 5 mmol/L (5-15); CALCIUM 8.5 mg/dL (8.5-10.1); CHLORIDE 110 mmol/L (98-107); CREATININE 0.87 mg/dL (0.7-1.3)
[2019-12-15 21:42] LABS: SALICYLATE LEVEL < 1.7 mg/dL (2.8-20.0)
[2019-12-15] MEDS ORDERED: QUETIAPINE 100MG TABLET ONE (21:50)
[2019-12-15] MEDS ORDERED: QUETIAPINE 100MG TABLET PO ONE (22:00)
--- NOTE | 2019-12-15 23:05 | NUR ---
PT PROVIDED WATER AND MEAL UPON REQUEST. ALL NEEDS MET AT THIS TIME.
--- NOTE | 2019-12-15 23:32 | NUR ---
SITTER IN HALLWAY AT THIS TIME. WITHIN LINE OF SIGHT. ROOM SECURED.
--- NOTE | 2019-12-16 01:09 | NUR ---
PT RESTING ON GURNEY WITH SITTER IN HALLWAY WITHIN LINE OF SIGHT. WATER PROVIDED. ROOM SECURED.
--- NOTE | 2019-12-16 01:25 | NUR ---
awaiting 3 e to call back
--- NOTE | 2019-12-16 01:51 | NUR ---
PT RESTING ON GURNEY WITH SITTER IN HALLWAY WITHIN LINE OF SIGHT. ROOM SECURED.
--- NOTE | 2019-12-16 03:05 | NUR ---
PT RESTING ON GURNEY WITH EYES CLOSED. SITTER IN HALLWAY WITHIN LINE OF SIGHT, ROOM SECURED.
--- NOTE | 2019-12-16 03:30 | NUR ---
SALVADOR RN: Aaron from [facility] states they will not accept pt due to lack of payment from insurance for previous visit.
--- NOTE | 2019-12-16 03:53 | NUR ---
FAXED PACKAGE TO [facility]
--- NOTE | 2019-12-16 04:22 | NUR ---
PT RESTING ON GURNEY WITH EYES CLOSED. PROVIDED WATER AT BS. SITTER IN HALLWAY WITHIN LINE OF SIGHT. ROOM SECURED. ALL NEEDS MET AT THIS TIME.
--- NOTE | 2019-12-16 05:28 | NUR ---
PT PLACED ON HOSPITAL BED. GIVEN SNACK AND WATER UPON REQUEST.
--- NOTE | 2019-12-16 06:58 | NUR ---
REPORT RECEIVED FROM GISELE JUAREZ.
--- NOTE | 2019-12-16 07:00 | NUR ---
MEAL TRAY ORDERED AT THIS TIME.
--- NOTE | 2019-12-16 07:58 | NUR ---
PT SLEEPING IN [facility]. RESPS EVEN AND UNLABORED. SITTER MONITORING FROM HALLWAY FOR SAFETY. ROOM REMAINS SECURE.
--- NOTE | 2019-12-16 08:51 | NUR ---
MEAL TRAY PROVIDED AT THIS TIME.
[2019-12-16 08:56] VITALS: BP 107/65
--- NOTE | 2019-12-16 10:47 | NUR ---
PT RESTING. RESPS EVEN AND UNLABORED. SITTER MONITORING FROM [facility] FOR SAFETY. ROOM REMAINS SECURE.
--- NOTE | 2019-12-16 11:05 | NUR ---
MEAL TRAY ORDERED AT THIS TIME.
--- NOTE | 2019-12-16 12:11 | NUR ---
LUNCH TRAY PROVIDED AT THIS TIME.
--- NOTE | 2019-12-16 12:38 | NUR ---
BREAK RN: SUGAR HOUSE SUPERVISOR AT BEDSIDE. PLAN FOR PT TO D/C HOME DISCUSSED WITH PT. AYESHA CHU ASSISTANT STATISTICIAN, PTS RX ARE BEING FILLED AT [facility] AND [facility].
--- NOTE | 2019-12-16 12:44 | NUR ---
BELONGINGS BAGS X 2 GIVEN TO PATIENT AND PT INSTRUCTED THAT HE CAN GET DRESSED BUT THAT HE IS TO WAIT IN ROOM FOR HIS D/C PAPERWORK AND BUS PASS.
--- NOTE | 2019-12-16 13:00 | NUR ---
BREAK RN: Patient/Caregiver given discharge instructions and they have confirmed that they understand the instructions. Patient ambulatory with steady gait. TAXI VOUCHER PROVIDED TO ROSMERY PÉREZ GIVEN
== END 2019-12-16 13:01 | disposition home or self-care (01) ==
LOC: ED 12-16 00:24
DX: R45.851 Suicidal ideations (principal); F06.0 Psychotic disorder with hallucinations due to known physiological condition; F25.9 Schizoaffective disorder, unspecified; F32.9 Major depressive disorder, single episode, unspecified; J45.909 Unspecified asthma, uncomplicated; F17.210 Nicotine dependence, cigarettes, uncomplicated; Z72.9 Problem related to lifestyle, unspecified; Z00.8 Encounter for other general examination
CPT/HCPCS: 36415; 80048; 80307; 81003; 82040; 85025; 99284

== ENCOUNTER 2020-01-07 01:31 | Emergency (ER) | payer MEDICAID ==
[2020-01-07] MEDS ORDERED: IBUPROFEN 600 MG TABLET ONE (02:31)
--- NOTE | 2020-01-07 04:35 | NUR ---
Pt visit during downtime. See paper chart
== END 2020-01-07 04:37 ==
LOC: ED 01:31
DX: J45.901 Unspecified asthma with (acute) exacerbation (principal); J18.9 Pneumonia, unspecified organism; R06.00 Dyspnea, unspecified; F17.210 Nicotine dependence, cigarettes, uncomplicated
CPT/HCPCS: 71045; 99283

== ENCOUNTER 2020-01-26 01:20 | Emergency (ER) | payer MEDICAID ==
[~2020-01-26] VITALS: Ht 175.3 cm; Wt 132.2 kg
--- NOTE | 2020-01-26 02:15 | NUR ---
TP RN: RT PAGED.
[2020-01-26] MEDS ORDERED: ONDANSETRON ODT 4 MG ONE (02:17)
[2020-01-26] MEDS ORDERED: ALBUTEROL SULFATE 2.5 MG/3 ML ONE ×2 (02:17→04:37)
--- NOTE | 2020-01-26 02:20 | NUR ---
PT MEDICATED PER MAR FOR NAUSEA
[2020-01-26 02:29] LABS: BASOPHILS # (AUTO) 0.05 x10^3/uL (0-0.1); BASOPHILS % (AUTO) 1 % (0-1); EOSINOPHILS # (AUTO) 0.42 x10^3/uL (0-0.4); EOSINOPHILS % (AUTO) 7 % (1-7); LYMPHOCYTES # (AUTO) 2.74 x10^3/uL (1-3.4); LYMPHOCYTES % (AUTO) 48 % (22-44); MD NO; MEAN CORPUSCULAR HEMOGLOBIN 34.6 pg (27.5-34.5); MEAN CORPUSCULAR HGB CONC 34.2 g/dL (33.2-36.2); MEAN PLATELET VOLUME 8.8 fL (7.4-10.4); MONOCYTES # (AUTO) 0.68 x10^3/uL (0.2-0.8); MONOCYTES % (AUTO) 12 % (2-9); NEUTROPHILS # (AUTO) 1.83 x10^3/uL (1.8-6.8); NEUTROPHILS % (AUTO) 32 % (42-75); PLATELET COUNT 155 x10^3/uL (130-400); RED BLOOD COUNT 4.16 x10^6/uL (4.38-5.82); RED CELL DISTRIBUTION WIDTH 12.4 % (9.4-14.8)
[2020-01-26] MEDS ORDERED: ALBUTEROL SULFATE 2.5 MG/3 ML NPPB ONE ×2 (02:30→03:30)
[2020-01-26] MEDS ORDERED: ONDANSETRON ODT 4 MG PO ONE (02:30)
[2020-01-26 02:39] LABS: ALANINE AMINOTRANSFERASE 38 U/L (12-78); ALBUMIN 3.4 g/dL (3.4-5.0); ANION GAP 6 mmol/L (5-15); CHLORIDE 108 mmol/L (98-107)
[2020-01-26 02:42] LABS: ALKALINE PHOSPHATASE 114 U/L (45-117); BILIRUBIN,TOTAL 0.3 mg/dL (0.2-1.0); CREATININE 0.86 mg/dL (0.7-1.3); TOTAL PROTEIN 6.7 g/dL (6.4-8.2)
--- NOTE | 2020-01-26 04:02 | NUR ---
PT MEDICATED PER MAR.
[2020-01-26 04:36] VITALS: BP 141/77
--- NOTE | 2020-01-26 04:51 | NUR ---
PT D/C WITH D/C SUMMARY AND SCRIPTS. ALL QUESTIONS ANSWERED. PT AMBULATES TO REGISTRATION DESK WITH STEADY GAIT FOR D/C HOME. PT DENIES ANY OTHER NEEDS PERTAINING TO THIS VISIT.
== END 2020-01-26 04:55 ==
LOC: ED 04:45
DX: J45.31 Mild persistent asthma with (acute) exacerbation (principal); R11.2 Nausea with vomiting, unspecified; R19.7 Diarrhea, unspecified; F17.200 Nicotine dependence, unspecified, uncomplicated
CPT/HCPCS: 36415; 71045; 80053; 83690; 85025; 94640; 99284; J7512; J7613; Q0162

== ENCOUNTER 2020-02-14 00:57 | Emergency (ER) | payer MEDICAID ==
[~2020-02-14] VITALS: Ht 175.3 cm; Wt 130.3 kg
[2020-02-14 01:02] VITALS: BP 142/84
--- NOTE | 2020-02-14 01:31 | NUR ---
PT SEATED IN CHAIR AT NURSES STATION AT THIS TIME FOR SAFETY. PT IS NAD CURRENTLY. NOTES THAT HE HAS RUN OUT OF HIS SEROQUEL, TRIED TO GO TO [facility] BUT WAS TOLD THAT THEY HAVE NO ROOM BUT DID GIVE HIM A SANDWHICH. PT AMBULATED TO ER FROM [facility].
[2020-02-14] MEDS ORDERED: QUET200T4 PO (01:47)
--- NOTE | 2020-02-14 01:51 | NUR ---
TALKING WITH DR FALK AT THIS TIME, REQUEST TAXI VOUCHER HOME FROM , WILL BE PROVIDED.
== END 2020-02-14 02:05 | disposition home or self-care (01) ==
LOC: ED 02:00
DX: F32.9 Major depressive disorder, single episode, unspecified (principal); Z76.0 Encounter for issue of repeat prescription; J45.909 Unspecified asthma, uncomplicated; Z72.9 Problem related to lifestyle, unspecified
CPT/HCPCS: 99281

== ENCOUNTER 2020-03-05 20:12 | Emergency (ER) | payer MEDICAID ==
[~2020-03-05] VITALS: Ht 175.3 cm; Wt 127.0 kg
[2020-03-05 20:17] VITALS: BP 130/78
--- NOTE | 2020-03-05 20:23 | NUR ---
WALTER. REPORT RECEIVED FROM EMS. +SI WITH PLANS AND HALLUCINATION. DENIES HI. LK2 BY [place]. OFF MEDS FOR A WHILE. PT'S AOX4. RESPS EVEN AND UNLABORED. ALL BELONGINGS OUT INTO ONE BAG AND PUT INTO THE LOCKER. EDMD AT BEDSIDE TO EVALUATE AT THIS TIME.
[2020-03-05] MEDS ORDERED: QUETIAPINE 100MG TABLET ONE (20:26)
[2020-03-05] MEDS ORDERED: QUETIAPINE 100MG TABLET PO ONE (20:30)
--- NOTE | 2020-03-05 20:30 | NUR ---
PT MEDICATED PER EMAR. PT TOLERATED WELL.
--- NOTE | 2020-03-05 20:55 | NUR ---
snacks provided at this time.
--- NOTE | 2020-03-05 21:10 | NUR ---
attempted dc and pt states "i don't need this med, i need different one but i don't know which one." edmd notified. edmd states" pt just need this med and he agreed." pt verbally understanding.
--- NOTE | 2020-03-05 21:16 | NUR ---
Patient given discharge instructions and they have confirmed that they understand the instructions. Patient ambulatory with steady gait.
== END 2020-03-05 21:17 | disposition home or self-care (01) ==
LOC: ED 20:30
DX: F20.89 Other schizophrenia (principal); F32.0 Major depressive disorder, single episode, mild; F17.200 Nicotine dependence, unspecified, uncomplicated
CPT/HCPCS: 99284

== ENCOUNTER 2020-03-20 08:26 | Emergency (ER) | payer MEDICAID ==
[~2020-03-20] VITALS: Ht 175.3 cm; Wt 143.2 kg
[2020-03-20 08:27] VITALS: BP 101/74
--- NOTE | 2020-03-20 08:55 | NUR ---
URINE COLLECTED AND SENT TO LAB. BREATHYLIZER PERFORMED AND WAS 0.00.
--- NOTE | 2020-03-20 09:05 | NUR ---
GARAGE DOORS DOWN FOR PATIENT SAFETY. CALL LIGHT IN LAP. WARM BLANKET PROVIDED.
--- NOTE | 2020-03-20 09:08 | NUR ---
REPORT FROM ADDIS VAN BAGED (2 BAGS), PLACED IN LOCKED CLOSET UPDATED ON POC-TO HAVE PSYCHIATRY EVALUATE THIS AFTERNOON
[2020-03-20 09:12] LABS: BASOPHILS # (AUTO) 0.02 x10^3/uL (0-0.1); BASOPHILS % (AUTO) 0 % (0-1); EOSINOPHILS # (AUTO) 0.18 x10^3/uL (0-0.4); EOSINOPHILS % (AUTO) 3 % (1-7); LYMPHOCYTES # (AUTO) 2.14 x10^3/uL (1-3.4); LYMPHOCYTES % (AUTO) 33 % (22-44); MD NO; MEAN CORPUSCULAR HEMOGLOBIN 33.9 pg (27.5-34.5); MEAN CORPUSCULAR HGB CONC 33.3 g/dL (33.2-36.2); MEAN CORPUSCULAR VOLUME 101.6 fL (81-97); MEAN PLATELET VOLUME 8.2 fL (7.4-10.4); MONOCYTES # (AUTO) 0.54 x10^3/uL (0.2-0.8); MONOCYTES % (AUTO) 8 % (2-9); NEUTROPHILS # (AUTO) 3.68 x10^3/uL (1.8-6.8); NEUTROPHILS % (AUTO) 56 % (42-75); PLATELET COUNT 191 x10^3/uL (130-400); RED BLOOD COUNT 4.04 x10^6/uL (4.38-5.82); RED CELL DISTRIBUTION WIDTH 13.3 % (9.4-14.8)
[2020-03-20 09:14] LABS: AMPHETAMINE SCREEN, URINE Negative (Negative); BARBITURATE SCREEN, URINE Negative (Negative); BENZODIAZEPINE SCREEN, URINE Negative (Negative); CANNABINOID SCREEN, URINE Negative (Negative); COCAINE SCREEN, URINE Negative (Negative); METHADONE SCREEN, URINE Negative (Negative); OPIATE SCREEN, URINE Negative (Negative)
[2020-03-20 09:23] LABS: ALBUMIN 3.1 g/dL (3.4-5.0); ANION GAP 8 mmol/L (5-15); CALCIUM 8.4 mg/dL (8.5-10.1); CHLORIDE 108 mmol/L (98-107); CREATININE 0.88 mg/dL (0.7-1.3); SALICYLATE LEVEL 1.7 mg/dL (2.8-20.0)
--- NOTE | 2020-03-20 11:04 | NUR ---
With reassessment: patient denies complaints Resting comfortably on [facility] Poc clarified with ER Provider- to have psych assess shortly Sitter at bedside
== END 2020-03-20 12:56 | disposition home or self-care (01) ==
LOC: ED 09:21
DX: F28 Other psychotic disorder not due to a substance or known physiological condition (principal); J45.909 Unspecified asthma, uncomplicated; F17.290 Nicotine dependence, other tobacco product, uncomplicated
CPT/HCPCS: 36415; 80048; 80307; 82040; 85025; 99283; 99284

== ENCOUNTER 2020-06-06 13:10 | Emergency (ER) | payer MEDICAID ==
[2020-06-06] MEDS ORDERED: OLANZAPINE 10 MG TABLET PO ONE (13:30)
[2020-06-06] MEDS ORDERED: PLEASE ENTER HEIGHT AND WEIGHT MC SCH (13:33)
[2020-06-06 14:12] VITALS: BP 132/74
[2020-06-06] MEDS ORDERED: OLANZAPINE 10 MG TABLET ONE (14:16)
== END 2020-06-06 14:14 | disposition home or self-care (01) ==
LOC: ED 14:08
DX: F15.10 Other stimulant abuse, uncomplicated (principal); Z72.9 Problem related to lifestyle, unspecified; J45.909 Unspecified asthma, uncomplicated
CPT/HCPCS: 99283

== ENCOUNTER 2020-06-08 17:03 | Inpatient (IN) | payer MEDICAID ==
[~2020-06-08] VITALS: Ht 175.3 cm; Wt 129.6 kg
[2020-06-08] MEDS ORDERED: BISACODYL 10 MG SUPP PR PRN (19:30)
[2020-06-08] MEDS ORDERED: POLYETHYLENE GLYCOL 17 GM PACKET PO PRN (19:30)
[2020-06-08] MEDS ORDERED: DOCUSATE 100 MG CAPSULE PO PRN (19:30)
[2020-06-08] MEDS ORDERED: ONDANSETRON ODT 4 MG PO PRN (19:30)
[2020-06-08 19:59] VITALS: BP 100/61
[2020-06-08] MEDS ORDERED: PLEASE ENTER HEIGHT AND WEIGHT MC SCH (20:00)
[2020-06-08 20:04] VITALS: BP 120/73
[2020-06-08 21:26] LABS: MICROSCOPIC NOT IND
[2020-06-09 07:19] LABS: BASOPHILS # (AUTO) 0.04 x10^3/uL (0-0.1); BASOPHILS % (AUTO) 1 % (0-1); EOSINOPHILS # (AUTO) 0.26 x10^3/uL (0-0.4); EOSINOPHILS % (AUTO) 5 % (1-7); LYMPHOCYTES # (AUTO) 2.45 x10^3/uL (1-3.4); LYMPHOCYTES % (AUTO) 43 % (22-44); MD NO; MEAN CORPUSCULAR HEMOGLOBIN 33.8 pg (27.5-34.5); MEAN CORPUSCULAR HGB CONC 32.7 g/dL (33.2-36.2); MEAN CORPUSCULAR VOLUME 103.4 fL (81-97); MEAN PLATELET VOLUME 8.4 fL (7.4-10.4); MONOCYTES # (AUTO) 0.53 x10^3/uL (0.2-0.8); MONOCYTES % (AUTO) 9 % (2-9); NEUTROPHILS # (AUTO) 2.41 x10^3/uL (1.8-6.8); NEUTROPHILS % (AUTO) 42 % (42-75); PLATELET COUNT 195 x10^3/uL (130-400); RED BLOOD COUNT 4.28 x10^6/uL (4.38-5.82); RED CELL DISTRIBUTION WIDTH 13.4 % (9.4-14.8)
[2020-06-09 07:32] LABS: ALBUMIN 2.9 g/dL (3.4-5.0); ANION GAP 5 mmol/L (5-15); CALCIUM 8.4 mg/dL (8.5-10.1); CHLORIDE 109 mmol/L (98-107)
[2020-06-09 07:56] VITALS: BP 115/72
[2020-06-09 07:57] LABS: ALANINE AMINOTRANSFERASE 79 U/L (12-78); ALKALINE PHOSPHATASE 115 U/L (45-117); BILIRUBIN,TOTAL 0.2 mg/dL (0.2-1.0); CHOL/HDL RATIO 3.8; CHOLESTEROL, TOTAL 150 mg/dL (140-239); CREATININE 0.76 mg/dL (0.7-1.3); FREE T4 (FREE THYROXINE) 0.69 ng/dL (0.76-1.46); HDL CHOL % 26 % (26-37); HDL CHOLESTEROL (DIRECT) 39 mg/dL (40-60); LDL CHOLESTEROL,CALCULATED 98 mg/dL (54-169); LDL/HDL RATIO 2.5 (0.5-3.0); TOTAL PROTEIN 6.6 g/dL (6.4-8.2); TRIGLYCERIDES 66 mg/dL (50-200); VLDL CHOLESTEROL 13 mg/dL (0-25)
[2020-06-09 07:58] LABS: BILIRUBIN, DIRECT < 0.1 mg/dL (0.1-0.2); BILIRUBIN,INDIRECT 0.1 mg/dL (0.0-2.0)
[2020-06-09] MEDS: BACITRACIN/POLYMIXIN B SULFATE OINT 14 GM TP SCH ×2 (12:00→20:51)
[2020-06-09 19:45] VITALS: BP 133/63
[2020-06-09] MEDS ORDERED: QUETIAPINE 100MG TABLET PO SCH (21:00)
[2020-06-10 04:49] LABS: BASOPHILS # (AUTO) 0.04 x10^3/uL (0-0.1); BASOPHILS % (AUTO) 1 % (0-1); EOSINOPHILS # (AUTO) 0.29 x10^3/uL (0-0.4); EOSINOPHILS % (AUTO) 4 % (1-7); LYMPHOCYTES # (AUTO) 3.07 x10^3/uL (1-3.4); LYMPHOCYTES % (AUTO) 42 % (22-44); MD NO; MEAN CORPUSCULAR HEMOGLOBIN 34.2 pg (27.5-34.5); MEAN CORPUSCULAR HGB CONC 33.3 g/dL (33.2-36.2); MEAN CORPUSCULAR VOLUME 102.9 fL (81-97); MEAN PLATELET VOLUME 8.6 fL (7.4-10.4); MONOCYTES # (AUTO) 0.69 x10^3/uL (0.2-0.8); MONOCYTES % (AUTO) 9 % (2-9); NEUTROPHILS # (AUTO) 3.21 x10^3/uL (1.8-6.8); NEUTROPHILS % (AUTO) 44 % (42-75); PLATELET COUNT 199 x10^3/uL (130-400); RED BLOOD COUNT 4.31 x10^6/uL (4.38-5.82); RED CELL DISTRIBUTION WIDTH 13.3 % (9.4-14.8)
[2020-06-10 07:35] VITALS: BP 125/73
[2020-06-10] MEDS: BACITRACIN/POLYMIXIN B SULFATE OINT 14 GM TP SCH ×2 (09:46→20:30)
[2020-06-10] MEDS: ZIPRASIDONE 40MG CAPSULE PO SCH (19:54)
[2020-06-10] MEDS: QUETIAPINE 100MG TABLET PO SCH (19:54)
[2020-06-10 19:58] VITALS: BP 113/78
[2020-06-11] MEDS: LEVOTHYROXINE 25 MCG TABLET PO SCH (05:26)
[2020-06-11 08:18] VITALS: BP 93/56
[2020-06-11] MEDS: BACITRACIN/POLYMIXIN B SULFATE OINT 14 GM TP SCH ×3 (08:54→21:00)
[2020-06-11] MEDS: ACETAMINOPHEN 325 MG TABLET PO PRN (15:01)
[2020-06-11 19:16] VITALS: BP 125/79
[2020-06-11] MEDS: ZIPRASIDONE 40MG CAPSULE PO SCH (21:00)
[2020-06-11] MEDS: QUETIAPINE 100MG TABLET PO SCH (21:01)
[2020-06-12] MEDS: LEVOTHYROXINE 25 MCG TABLET PO SCH (06:01)
[2020-06-12 07:43] VITALS: BP 128/67
[2020-06-12] MEDS: BACITRACIN/POLYMIXIN B SULFATE OINT 14 GM TP SCH ×3 (09:00→20:37)
[2020-06-12] MEDS ORDERED: ZIPRASIDONE 20MG CAPSULE PO SCH (09:00)
[2020-06-12] MEDS ORDERED: THIORIDAZINE 10 MG PO SCH (11:00)
[2020-06-12 19:49] VITALS: BP 132/76
[2020-06-12] MEDS: QUETIAPINE 100MG TABLET PO SCH (20:04)
[2020-06-13] MEDS: LEVOTHYROXINE 25 MCG TABLET PO SCH (06:19)
[2020-06-13 07:37] VITALS: BP 116/72
[2020-06-13] MEDS: BACITRACIN/POLYMIXIN B SULFATE OINT 14 GM TP SCH ×2 (08:59→20:48)
[2020-06-13] MEDS ORDERED: LORazepam 1MG TABLET ONE (13:35)
[2020-06-13] MEDS ORDERED: LORazepam 1MG TABLET PO PRN (14:00)
[2020-06-13] MEDS: ACETAMINOPHEN 325 MG TABLET PO PRN ×2 (14:20→20:47)
[2020-06-13 20:06] VITALS: BP 133/77
[2020-06-13] MEDS: QUETIAPINE 100MG TABLET PO SCH (20:47)
[2020-06-14] MEDS: LEVOTHYROXINE 25 MCG TABLET PO SCH (05:38)
[2020-06-14 07:19] VITALS: BP 121/70
[2020-06-14] MEDS: THIORIDAZINE 10 MG PO SCH ×2 (08:45→20:24)
[2020-06-14] MEDS: BACITRACIN/POLYMIXIN B SULFATE OINT 14 GM TP SCH ×2 (08:58→20:24)
[2020-06-14] MEDS ORDERED: QUET100T PO (15:00)
[2020-06-14] MEDS ORDERED: LEVO25TA2 PO (15:00)
[2020-06-14] MEDS ORDERED: THIO10TA PO (15:00)
[2020-06-14] MEDS: ACETAMINOPHEN 325 MG TABLET PO PRN ×2 (16:18→20:29)
[2020-06-14 19:10] VITALS: BP 156/84
[2020-06-14] MEDS: QUETIAPINE 100MG TABLET PO SCH (20:23)
[2020-06-15] MEDS: LEVOTHYROXINE 25 MCG TABLET PO SCH (06:22)
[2020-06-15 06:34] VITALS: BP 100/61
[2020-06-15] MEDS: THIORIDAZINE 10 MG PO SCH (08:55)
== END 2020-06-15 11:05 | disposition home or self-care (01) | DRG 750 ==
LOC: 3E 19:27
PROVIDERS: ADMIT Psychiatry & Neurology Psychosomatic Medicine; ATTEND Psychiatry & Neurology Psychosomatic Medicine
DX: F25.0 Schizoaffective disorder, bipolar type (principal); E03.9 Hypothyroidism, unspecified; E66.9 Obesity, unspecified; J45.909 Unspecified asthma, uncomplicated; R45.851 Suicidal ideations; Z82.49 Family history of ischemic heart disease and other diseases of the circulatory system; Z83.3 Family history of diabetes mellitus; Z79.899 Other long term (current) drug therapy; Z68.41 Body mass index [BMI] 40.0-44.9, adult; Z88.0 Allergy status to penicillin; Z88.8 Allergy status to other drugs, medicaments and biological substances; Z88.5 Allergy status to narcotic agent
CPT/HCPCS: 36415; 71045; 80048; 80061; 80076; 81003; 82607; 84439; 84443; 85025; 85651; 86140; 93005

== ENCOUNTER 2020-06-22 15:53 | Emergency (ER) | payer MEDICAID ==
[~2020-06-22] VITALS: Ht 175.3 cm; Wt 120.0 kg
[~2020-06-22 15:53] MED LIST changes: +LEVO25TA2 PO; +THIO10TA PO
[2020-06-22 16:05] VITALS: BP 118/79
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
--- NOTE | 2020-06-22 16:35 | NUR ---
PSYCH WILLOW MACHINE TENDER paged for consult.
[2020-06-22 17:00] LABS: BASOPHILS # (AUTO) 0.05 x10^3/uL (0-0.1); BASOPHILS % (AUTO) 1 % (0-1); EOSINOPHILS # (AUTO) 0.36 x10^3/uL (0-0.4); EOSINOPHILS % (AUTO) 5 % (1-7); LYMPHOCYTES # (AUTO) 3.17 x10^3/uL (1-3.4); LYMPHOCYTES % (AUTO) 43 % (22-44); MD NO; MEAN CORPUSCULAR HEMOGLOBIN 33.7 pg (27.5-34.5); MEAN CORPUSCULAR HGB CONC 32.6 g/dL (33.2-36.2); MEAN PLATELET VOLUME 8.6 fL (7.4-10.4); MONOCYTES # (AUTO) 0.52 x10^3/uL (0.2-0.8); MONOCYTES % (AUTO) 7 % (2-9); NEUTROPHILS # (AUTO) 3.23 x10^3/uL (1.8-6.8); NEUTROPHILS % (AUTO) 44 % (42-75); PLATELET COUNT 182 x10^3/uL (130-400); RED BLOOD COUNT 3.94 x10^6/uL (4.38-5.82); RED CELL DISTRIBUTION WIDTH 13.1 % (9.4-14.8)
[2020-06-22 17:12] LABS: ALBUMIN 2.8 g/dL (3.4-5.0); ANION GAP 7 mmol/L (5-15); CALCIUM 7.7 mg/dL (8.5-10.1); CHLORIDE 108 mmol/L (98-107); CREATININE 0.88 mg/dL (0.7-1.3)
[2020-06-22 17:13] LABS: SALICYLATE LEVEL < 1.7 mg/dL (2.8-20.0)
[2020-06-22 17:13] LABS: AMPHETAMINE SCREEN, URINE Positive (Negative); BARBITURATE SCREEN, URINE Negative (Negative); BENZODIAZEPINE SCREEN, URINE Negative (Negative); CANNABINOID SCREEN, URINE Negative (Negative); COCAINE SCREEN, URINE Negative (Negative); METHADONE SCREEN, URINE Negative (Negative); OPIATE SCREEN, URINE Negative (Negative)
--- NOTE | 2020-06-22 17:28 | NUR ---
PT IS RESTING ON HOSPITAL BED W/ SITTER OUTSIDE AND GARAGE DOORS DOWN FOR SAFETY. RESP EVEN AND UNLABORED, BABAK.
--- NOTE | 2020-06-22 17:40 | NUR ---
PER ELADIO COMPLIANCE NURSE, ELLE BONNER DISCONTINUED HOLD AND PT IS SAFE FOR DISCHARGE. PPT BELONGINGS RETURNED TO PT.
== END 2020-06-22 18:12 | disposition home or self-care (01) ==
LOC: ED 17:30
DX: F15.10 Other stimulant abuse, uncomplicated (principal); F41.1 Generalized anxiety disorder; R44.0 Auditory hallucinations; R45.851 Suicidal ideations
CPT/HCPCS: 36415; 80048; 80307; 82040; 85025; 99283

== ENCOUNTER 2020-06-27 12:16 | Emergency (ER) | payer MEDICAID ==
[~2020-06-27] VITALS: Ht 175.3 cm; Wt 131.0 kg
[2020-06-27 12:26] VITALS: BP 115/85
--- NOTE | 2020-06-27 12:41 | NUR ---
PT TO THE ROOM 4 C/O SI IN RESPONSE TO METHOD "I WILL HANG MY SELF OR ANY WAY I CAN" CLOTHING REMOVED AND SECURED SITTER IN THE [place] WATCHING THE PT LEAD AWARE OF NUMBERS BEING WATCHED
--- NOTE | 2020-06-27 13:01 | NUR ---
PER PSY EVAL PT DENIES HI SI AND WILL BE A DC
== END 2020-06-27 13:09 | disposition home or self-care (01) ==
LOC: ED 13:03
DX: F25.9 Schizoaffective disorder, unspecified (principal); J45.909 Unspecified asthma, uncomplicated
CPT/HCPCS: 99281

== ENCOUNTER 2020-08-15 08:04 | Emergency (ER) | payer MEDICAID ==
[~2020-08-15] VITALS: Ht 175.3 cm; Wt 137.0 kg
[2020-08-15 08:06] VITALS: BP 126/77
--- NOTE | 2020-08-15 08:24 | NUR ---
"i need a med change". hx schizo. hearing voices telling him to kill himself by cutting his wrists, sts past suicide attempt by cutting wrists, no significant scars visualized. a&ox4 gcs 15 no physical complaints. denies VH/HI. belongings in 1 bag, placed in locker. room secured. safety maintained, plan to move to room 1 w/ sitter shortly. as
[2020-08-15 08:51] LABS: BASOPHILS # (AUTO) 0.03 x10^3/uL (0-0.1); BASOPHILS % (AUTO) 1 % (0-1); EOSINOPHILS # (AUTO) 0.32 x10^3/uL (0-0.4); EOSINOPHILS % (AUTO) 7 % (1-7); LYMPHOCYTES # (AUTO) 2.03 x10^3/uL (1-3.4); LYMPHOCYTES % (AUTO) 42 % (22-44); MD NO; MEAN CORPUSCULAR HEMOGLOBIN 34.4 pg (27.5-34.5); MEAN CORPUSCULAR HGB CONC 33.5 g/dL (33.2-36.2); MONOCYTES # (AUTO) 0.47 x10^3/uL (0.2-0.8); MONOCYTES % (AUTO) 10 % (2-9); NEUTROPHILS # (AUTO) 2.01 x10^3/uL (1.8-6.8); NEUTROPHILS % (AUTO) 41 % (42-75); PLATELET COUNT 179 x10^3/uL (130-400); RED BLOOD COUNT 4.14 x10^6/uL (4.38-5.82)
--- NOTE | 2020-08-15 08:55 | NUR ---
pt moved to room1 report to emile thayer room secured sitter in place. as
[2020-08-15 09:01] LABS: ALANINE AMINOTRANSFERASE 64 U/L (12-78); ALBUMIN 2.9 g/dL (3.4-5.0); ANION GAP 7 mmol/L (5-15); CALCIUM 7.7 mg/dL (8.5-10.1); CHLORIDE 109 mmol/L (98-107); CREATININE 0.79 mg/dL (0.7-1.3)
[2020-08-15 09:02] LABS: SALICYLATE LEVEL < 1.7 mg/dL (2.8-20.0)
[2020-08-15 09:11] LABS: ALKALINE PHOSPHATASE 93 U/L (45-117); BILIRUBIN,TOTAL 0.4 mg/dL (0.2-1.0); TOTAL PROTEIN 6.8 g/dL (6.4-8.2)
--- NOTE | 2020-08-15 09:35 | NUR ---
pt instructed to provide urine sample, urinal provided. sitter monitoring from [facility] for safety, room secure. pt calm and cooperative at this time.
--- NOTE | 2020-08-15 10:05 | NUR ---
report received from LARRY Mabry, this RN assuming care. pt provided urine sample, urine sent to lab. awaiting further orders at this time. pt calm and cooperative, requesting sandwich.
[2020-08-15 10:12] LABS: MICROSCOPIC INDICATED
[2020-08-15 10:17] LABS: AMPHETAMINE SCREEN, URINE Negative (Negative); BARBITURATE SCREEN, URINE Negative (Negative); BENZODIAZEPINE SCREEN, URINE Negative (Negative); CANNABINOID SCREEN, URINE Negative (Negative); COCAINE SCREEN, URINE Negative (Negative); OPIATE SCREEN, URINE Negative (Negative)
[2020-08-15 10:19] LABS: METHADONE SCREEN, URINE Negative (Negative)
--- NOTE | 2020-08-15 11:11 | NUR ---
all results back, MD More notified. states pt has been placed on legal hold. throughput RN notified. pt sleeping, resps even and unlabored. meal tray ordered. hospital bed requested.
--- NOTE | 2020-08-15 13:00 | NUR ---
pt moved to hospital bed, given SI meal tray, pt is grateful. pt a&o, resps even and unlabored, no complaint. room secure. sitter monitoring from [facility] for safety.
--- NOTE | 2020-08-15 14:13 | NUR ---
Report from LARRY Lutz. Pt care responsibilities assumed.
--- NOTE | 2020-08-15 14:17 | NUR ---
report given to LARRY Garcia who is assuming care. pt resting on hospital bed, resps even and unlabored, nadn. sitter monitoring from [facility] for safety. room secure.
--- NOTE | 2020-08-15 15:18 | NUR ---
PT RESTING IN BED. SITTER CONTINUES IN DIRECT LINE OF SIGHT.
--- NOTE | 2020-08-15 17:39 | NUR ---
PT PROVIDED WITH MEAL, JUICE, AND BUS PASS. BELONGINGS RETURNED. DISCHARGE INSTRUCTIONS REVIEWED, PT DENIES ANY FURTHER NEEDS OR CONCERNS AT THIS TIME.
[2020-08-15] MEDS ORDERED: QUETIAPINE 100MG TABLET PO SCH (21:00)
== END 2020-08-15 17:51 | disposition home or self-care (01) ==
LOC: ED 09:40
DX: F33.9 Major depressive disorder, recurrent, unspecified (principal); R45.851 Suicidal ideations; R44.0 Auditory hallucinations; J45.909 Unspecified asthma, uncomplicated; F17.210 Nicotine dependence, cigarettes, uncomplicated
CPT/HCPCS: 36415; 80053; 80307; 81001; 84443; 85025; 99284

== ENCOUNTER 2020-08-23 01:30 | Emergency (ER) | payer MEDICAID ==
[~2020-08-23] VITALS: Ht 175.3 cm; Wt 135.0 kg
[2020-08-23 01:33] VITALS: BP 136/79
--- NOTE | 2020-08-23 01:40 | NUR ---
Pt to room, changed into gown and put belongings in bag in locked cabinet. Room secured, garage doors down and extra equipment removed. Pt states he is suicidal and hearing voices to hurt himself. Pt states he has a plan to cut himself. manager investigationsLARRY Oneill made aware.
--- NOTE | 2020-08-23 02:36 | NUR ---
Pt resting in [facility] at this time, appears comforatble with NADN and denies further needs at this time, safety of room ensured, will continue to monitor
[2020-08-23 02:45] LABS: BASOPHILS # (AUTO) 0.04 x10^3/uL (0-0.1); BASOPHILS % (AUTO) 0 % (0-1); EOSINOPHILS # (AUTO) 0.44 x10^3/uL (0-0.4); EOSINOPHILS % (AUTO) 5 % (1-7); LYMPHOCYTES # (AUTO) 3.91 x10^3/uL (1-3.4); LYMPHOCYTES % (AUTO) 43 % (22-44); MD NO; MEAN CORPUSCULAR HEMOGLOBIN 34.5 pg (27.5-34.5); MEAN CORPUSCULAR HGB CONC 33.6 g/dL (33.2-36.2); MEAN PLATELET VOLUME 8.3 fL (7.4-10.4); MONOCYTES # (AUTO) 0.63 x10^3/uL (0.2-0.8); MONOCYTES % (AUTO) 7 % (2-9); NEUTROPHILS # (AUTO) 4.14 x10^3/uL (1.8-6.8); NEUTROPHILS % (AUTO) 45 % (42-75); PLATELET COUNT 196 x10^3/uL (130-400); RED BLOOD COUNT 4.38 x10^6/uL (4.38-5.82); RED CELL DISTRIBUTION WIDTH 12.7 % (9.4-14.8)
[2020-08-23 02:50] LABS: ALBUMIN 3.2 g/dL (3.4-5.0); ANION GAP 3 mmol/L (5-15); CALCIUM 8.1 mg/dL (8.5-10.1); CHLORIDE 107 mmol/L (98-107); CREATININE 0.92 mg/dL (0.7-1.3)
[2020-08-23 02:55] LABS: SALICYLATE LEVEL < 1.7 mg/dL (2.8-20.0)
[2020-08-23 03:24] LABS: AMPHETAMINE SCREEN, URINE Negative (Negative); BARBITURATE SCREEN, URINE Negative (Negative); BENZODIAZEPINE SCREEN, URINE Negative (Negative); CANNABINOID SCREEN, URINE Negative (Negative); COCAINE SCREEN, URINE Negative (Negative); METHADONE SCREEN, URINE Negative (Negative); OPIATE SCREEN, URINE Negative (Negative)
--- NOTE | 2020-08-23 03:49 | NUR ---
Pt sleeping in [facility] at this time, respirations equal and unlabored, NADN, safety of room ensured, will continue to monitor
--- NOTE | 2020-08-23 05:12 | NUR ---
Pt continues to sleep in [facility] at this time, appears comfortable, breathing equal and unlabored, NADN, safety of room ensured, will continue to monitor.
--- NOTE | 2020-08-23 06:35 | NUR ---
Pt resting in [place], requesting snack and beverage. Pt provided with juice, sandwhich, and crackers. Pending psych LOG ROLLER in the am.
--- NOTE | 2020-08-23 06:52 | NUR ---
REPORT FROM JO-ANN RN, PT RESTING IN [facility] AWAITING EVAL FROM PSYCH MEDICAL SERVICE REPRESENTATIVE
--- NOTE | 2020-08-23 07:50 | NUR ---
Pt resting in [facility], awaiting eval by psych field auditor. pt not on legal hold at this time. breakfast tray ordered. pt calm and cooperative
--- NOTE | 2020-08-23 08:50 | NUR ---
pt resting in [facility], given breakfast tray
--- NOTE | 2020-08-23 10:52 | NUR ---
quiller runner note: Meal tray ordered for pt.
== END 2020-08-23 08:34 ==
LOC: ED 07:09
DX: F22 Delusional disorders (principal); R45.851 Suicidal ideations; F25.9 Schizoaffective disorder, unspecified; F28 Other psychotic disorder not due to a substance or known physiological condition; Z72.9 Problem related to lifestyle, unspecified
CPT/HCPCS: 36415; 80048; 80307; 82040; 85025; 99284

== ENCOUNTER 2020-09-07 10:25 | Emergency (ER) | payer MEDICAID ==
[~2020-09-07] VITALS: Ht 175.3 cm; Wt 136.9 kg
[2020-09-07 10:33] VITALS: BP 138/82
--- NOTE | 2020-09-07 11:09 | NUR ---
PT STATES, "I WAS SUICIDAL. I WAS GOING TO CUT MY ARM WITH A KNIFE OR SOMETHING." PT REPORTS, "I TOLD MYSELF TO COME HERE INSTEAD." PT HAVING VISUAL AND AUDITORY HALLUCINATIONS TELLING HIM TO CUT HIMSELF. PT WANT TO GOT TO [facility] TO GET HIS MEDS CHANGED.
--- NOTE | 2020-09-07 11:35 | NUR ---
LAB IN ROOM
[2020-09-07 11:56] LABS: BASOPHILS % (AUTO) 1 % (0-1); EOSINOPHILS % (AUTO) 2 % (1-7); LYMPHOCYTES % (AUTO) 27 % (22-44); MEAN PLATELET VOLUME 7.9 fL (7.4-10.4); MONOCYTES % (AUTO) 7 % (2-9); NEUTROPHILS % (AUTO) 63 % (42-75); PLATELET COUNT 212 x10^3/uL (130-400); RED BLOOD COUNT 4.16 x10^6/uL (4.38-5.82); RED CELL DISTRIBUTION WIDTH 13.2 % (9.4-14.8)
[2020-09-07 12:02] LABS: ALBUMIN 3.1 g/dL (3.4-5.0); ANION GAP 7 mmol/L (5-15); CALCIUM 8.9 mg/dL (8.5-10.1); CHLORIDE 105 mmol/L (98-107)
[2020-09-07 12:03] LABS: CREATININE 0.95 mg/dL (0.7-1.3); MD NO
[2020-09-07 12:07] LABS: SALICYLATE LEVEL < 1.7 mg/dL (2.8-20.0)
[2020-09-07 12:10] LABS: AMPHETAMINE SCREEN, URINE Negative (Negative); BARBITURATE SCREEN, URINE Negative (Negative); BENZODIAZEPINE SCREEN, URINE Negative (Negative); CANNABINOID SCREEN, URINE Negative (Negative); COCAINE SCREEN, URINE Negative (Negative); METHADONE SCREEN, URINE Negative (Negative); OPIATE SCREEN, URINE Negative (Negative)
--- NOTE | 2020-09-07 12:31 | NUR ---
TASK RN: PT RESTING ON GURNEY IN NAD, FINISHED LUNCH. SITTER OUTSIDE ROOM FOR SAFE MONITORING.
== END 2020-09-07 12:44 | disposition home or self-care (01) ==
LOC: ED 12:18
DX: F15.20 Other stimulant dependence, uncomplicated (principal); F32.9 Major depressive disorder, single episode, unspecified; R45.851 Suicidal ideations; J45.909 Unspecified asthma, uncomplicated
CPT/HCPCS: 36415; 80048; 80307; 82040; 85025; 99284

== ENCOUNTER 2020-10-09 15:46 | Emergency (ER) | payer MEDICAID ==
[~2020-10-09] VITALS: Ht 175.3 cm; Wt 102.0 kg
[2020-10-09 16:53] VITALS: BP 125/69
== END 2020-10-09 17:28 | disposition home or self-care (01) ==
LOC: ED 17:22
DX: J06.9 Acute upper respiratory infection, unspecified (principal); Z20.828 Contact with and (suspected) exposure to other viral communicable diseases; R05 Cough; R09.81 Nasal congestion; R06.02 Shortness of breath; J45.909 Unspecified asthma, uncomplicated
CPT/HCPCS: 71045; 87635; 99284

== ENCOUNTER 2020-10-14 23:34 | Emergency (ER) | payer MEDICAID ==
[~2020-10-14] VITALS: Ht 175.3 cm; Wt 129.1 kg
[2020-10-14 23:37] VITALS: BP 117/58
[2020-10-15 00:02] LABS: BASOPHILS % (AUTO) 1 % (0-1); EOSINOPHILS % (AUTO) 4 % (1-7); LYMPHOCYTES % (AUTO) 51 % (22-44); MEAN CORPUSCULAR HEMOGLOBIN 35.1 pg (27.5-34.5); MEAN CORPUSCULAR HGB CONC 34.5 g/dL (33.2-36.2); MEAN PLATELET VOLUME 8.7 fL (7.4-10.4); MONOCYTES % (AUTO) 8 % (2-9); NEUTROPHILS % (AUTO) 37 % (42-75); PLATELET COUNT 186 x10^3/uL (130-400); RED BLOOD COUNT 4.25 x10^6/uL (4.38-5.82)
[2020-10-15 00:10] LABS: ALBUMIN 3.3 g/dL (3.4-5.0); ANION GAP 4 mmol/L (5-15); CALCIUM 8.1 mg/dL (8.5-10.1); CHLORIDE 111 mmol/L (98-107); CREATININE 0.82 mg/dL (0.7-1.3)
[2020-10-15 00:27] LABS: MD SCAN
[2020-10-15 00:29] LABS: SALICYLATE LEVEL < 1.7 mg/dL (2.8-20.0)
--- NOTE | 2020-10-15 00:36 | NUR ---
PT DENIES HI/SI AT THIS TIME STATES HE JUST WANTS A BUS PASS, ERP AWARE, PT WILL BE DC
[2020-10-15 00:45] LABS: AMPHETAMINE SCREEN, URINE Negative (Negative); BARBITURATE SCREEN, URINE Negative (Negative); BENZODIAZEPINE SCREEN, URINE Negative (Negative); CANNABINOID SCREEN, URINE Negative (Negative); COCAINE SCREEN, URINE Negative (Negative); METHADONE SCREEN, URINE Negative (Negative); OPIATE SCREEN, URINE Negative (Negative)
== END 2020-10-15 00:38 | disposition home or self-care (01) ==
LOC: ED 10-15 00:20
DX: F20.9 Schizophrenia, unspecified (principal); J45.909 Unspecified asthma, uncomplicated; R45.851 Suicidal ideations
CPT/HCPCS: 36415; 80048; 80307; 82040; 84443; 85025; 99284

== ENCOUNTER 2020-10-31 07:27 | Emergency (ER) | payer MEDICAID ==
[~2020-10-31] VITALS: Ht 175.3 cm; Wt 126.1 kg
--- NOTE | 2020-10-31 08:38 | NUR ---
PT STATES HE HAS HAD A COUGH SINCE OCTOBER 09. RUNNY NOSE, MUCOUS. PT THROWS UP WHEN HE IS OUTSIDE IN THE COLD. PT HAS EPISODES OF HIS BODY OVERHEATING AND SWEATS ALOT
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
--- NOTE | 2020-10-31 09:38 | NUR ---
contacted [facility] per dr mcmahon's request to make report. they will send officer yoly.
--- NOTE | 2020-10-31 09:53 | NUR ---
awaiting [employer] report to Lizeth JUAREZ
--- NOTE | 2020-10-31 11:06 | NUR ---
[employer] HERE, REPORT GIVEN TO OFFICER. OFFICER GOING IN TO SPEAK TO PT NOW.
--- NOTE | 2020-10-31 11:17 | NUR ---
[employer] OFFICER TALKING TO PT ABOUT GETTING SART EXAM. ERP WAS BACK TO CHECK IN WITH PT & [employer].
[2020-10-31 11:53] VITALS: BP 126/75
--- NOTE | 2020-10-31 11:54 | NUR ---
D/C INSTRUCTIONS & F/U APPT RV'WD WITH PT, HE VERBALIZES UNDERSTANDING. PT CALM, NO S/S OF DISTRESS. SNACKS, WATER & JUICE PROVIDED TO PT. [employer] OFFICER TO TAKE PT TO SART EXAM.
== END 2020-10-31 11:56 | disposition home or self-care (01) ==
LOC: ED 07:53
DX: T74.21XA Adult sexual abuse, confirmed, initial encounter (principal); J11.1 Influenza due to unidentified influenza virus with other respiratory manifestations; J45.909 Unspecified asthma, uncomplicated; Y00.XXXA Assault by blunt object, initial encounter; Y93.01 Activity, walking, marching and hiking; Y92.488 Other paved roadways as the place of occurrence of the external cause; Y99.8 Other external cause status
CPT/HCPCS: 99283

== ENCOUNTER 2020-11-06 21:54 | Emergency (ER) | payer MEDICAID ==
[~2020-11-06] VITALS: Ht 175.3 cm; Wt 129.0 kg
[2020-11-06] MEDS ORDERED: OLANZAPINE 5 MG TABLET PO STA (22:26)
--- NOTE | 2020-11-06 22:30 | NUR ---
pt walked back to room 3. calm and cooperative. changed into gown, and clothing and belongins locked away in belongins bin. md ernst neri pt.
[2020-11-06] MEDS ORDERED: OLANZAPINE 5 MG TABLET ONE (22:39)
[2020-11-06 22:46] LABS: ALBUMIN 3.2 g/dL (3.4-5.0); ANION GAP 3 mmol/L (5-15); CALCIUM 8.6 mg/dL (8.5-10.1); CHLORIDE 107 mmol/L (98-107); CREATININE 0.89 mg/dL (0.7-1.3)
--- NOTE | 2020-11-06 22:46 | NUR ---
pt given meds per MD order. calm, and cooperative talking with MD.
[2020-11-06 22:55] LABS: SALICYLATE LEVEL < 1.7 mg/dL (2.8-20.0)
[2020-11-06 23:03] LABS: BASOPHILS % (AUTO) 1 % (0-1); EOSINOPHILS % (AUTO) 4 % (1-7); LYMPHOCYTES % (AUTO) 47 % (22-44); MEAN CORPUSCULAR HEMOGLOBIN 34.2 pg (27.5-34.5); MEAN PLATELET VOLUME 9.6 fL (7.4-10.4); MONOCYTES % (AUTO) 8 % (2-9); NEUTROPHILS % (AUTO) 40 % (42-75); PLATELET COUNT 162 x10^3/uL (130-400); RED BLOOD COUNT 4.25 x10^6/uL (4.38-5.82); RED CELL DISTRIBUTION WIDTH 12.9 % (9.4-14.8)
[2020-11-06 23:14] LABS: AMPHETAMINE SCREEN, URINE Negative (Negative); BARBITURATE SCREEN, URINE Negative (Negative); BENZODIAZEPINE SCREEN, URINE Negative (Negative); CANNABINOID SCREEN, URINE Negative (Negative); COCAINE SCREEN, URINE Negative (Negative); METHADONE SCREEN, URINE Negative (Negative); OPIATE SCREEN, URINE Negative (Negative)
[2020-11-06 23:19] VITALS: BP 130/74
[2020-11-06 23:44] LABS: MD SCAN
== END 2020-11-07 00:25 | disposition home or self-care (01) ==
LOC: ED 23:40
DX: F31.9 Bipolar disorder, unspecified (principal); F22 Delusional disorders; R45.851 Suicidal ideations; Z91.14 Patient's other noncompliance with medication regimen; F25.9 Schizoaffective disorder, unspecified
CPT/HCPCS: 36415; 80048; 80299; 80307; 80320; 80329; 82040; 85025; 99284; G0480